=== PATIENT | male | born 1935 | race Caucasian/White ===

== ENCOUNTER 2017-03-05 07:17 | Day surgery (SDC) | payer OTHER, MEDICARE ==
[~2017-03-05] VITALS: Ht 182.9 cm; Wt 131.0 kg
[~2017-03-05 07:17] MED LIST: ACTOS30 MG PO; ALEVE220 MG PO; AMARYL4 MG PO; HYZAAR 100-11 TABLET PO; JANUVIA100 MG PO; METFORMIN HCL1000 MG PO; NORVASC10 MG PO; [UNRECOGNIZED DRUG - CODE] PO
[2017-03-05] MEDS ORDERED: TYLENOL EXTRA500 MG PO (07:49)
[2017-03-05 07:52] VITALS: BP 129/61
[2017-03-05 07:55] LABS: POINT-OF-CARE METER ID UU14174212
[2017-03-05 10:48] LABS: POINT-OF-CARE METER ID UU13113675
[2017-03-05 10:50] VITALS: BP 141/77
[2017-03-05 11:50] VITALS: BP 144/75
== END 2017-03-05 11:55 | disposition home or self-care (01) ==
LOC: SDC 07:17
PROVIDERS: Internal Medicine
DX: H35.342 Macular cyst, hole, or pseudohole, left eye (principal); H35.372 Puckering of macula, left eye; I10 Essential (primary) hypertension; E11.9 Type 2 diabetes mellitus without complications; Z79.84 Long term (current) use of oral hypoglycemic drugs
CPT/HCPCS: 82948; J0690; J2405; J3010; J3300; J7120